=== PATIENT | male | born 1955 | race Caucasian/White ===

== ENCOUNTER → 2017-12-29 | Outpatient (CLI) | payer BC, MEDICARE ==
[2015-09-21 12:28] VITALS: BP 178/99
[~2017-12-29] MED LIST: OXYC1TAB9 PO; methadone
--- NOTE | 2017-12-30 08:18 | RAD ---
Chest, 2 views, 12/29/2017: History: Cough, shortness of breath Comparison is made to a study from 11/20/2018. The heart size and pulmonary vascularity are normal. There is mild tortuosity of the thoracic aorta. No pulmonary consolidation is seen. There is no evidence of pleural fluid. Mild spurring is present in the spine. A surgical plate and screws is evident in the lower cervical region. IMPRESSION: No acute cardiopulmonary abnormality is detected.
== END | disposition home or self-care (01) ==
LOC: RAD 17:13
PROVIDERS: ATTEND Physician Assistant
DX: R05 Cough (principal); F17.200 Nicotine dependence, unspecified, uncomplicated
CPT/HCPCS: 71046

== ENCOUNTER → 2018-11-17 | Outpatient (CLI) | payer BC, MEDICARE ==
[2015-09-21 12:28] VITALS: BP 178/99
[~2018-11-17] MED LIST changes: +OXYC-411 PO; -OXYC1TAB9 PO
--- NOTE | 2018-11-17 20:53 | RAD ---
EXAM: Chest, 2 views. HISTORY: Shortness of breath. COMPARISON: 12/29/2017 FINDINGS: 2 views of the chest are obtained. There is no infiltrate, pleural effusion or pneumothorax. The heart is normal in size. There is cervical spinal fusion instrumentation. IMPRESSION: No acute pulmonary finding. Electronically signed by: Fátima Del Valle MD (11/17/2018 8:48 PM) [id number]
== END | disposition home or self-care (01) ==
LOC: PMG 17:01
PROVIDERS: ATTEND Registered Nurse
DX: R06.02 Shortness of breath (principal); Z98.890 Other specified postprocedural states
CPT/HCPCS: 71046